=== PATIENT | female | born 2000 | race Caucasian/White ===

== ENCOUNTER 2022-01-09 01:00 | Emergency (ER) | payer SELFPAY ==
[~2022-01-09] VITALS: Ht 167.6 cm; Wt 63.0 kg
[2022-01-09 01:00] VITALS: BP 130/85
--- NOTE | 2022-01-09 01:00 | NUR ---
JAZLYN SCHULZ TAKEN TO BED #3
--- NOTE | 2022-01-09 01:10 | NUR ---
COVERING PRIMARY RN FOR LUNCH RELIEF --- 21 Y/O F JAZLYN FROM [facility] WITH C/O ETOH. PT ADMITS TO CONSUMPTION OF VODKA OF [place]. PT HAD 1 EPISODE OF VOMITTING WITH EMS. PT ABLE TO ANSWER YES/NO QUESTIONS ONLY AT THIS TIME. AROUSABLE TO LIGHT TOUCH AND NAME.
--- NOTE | 2022-01-09 01:30 | NUR ---
PT RESPONDING TO VERBAL COMMANDS. REPONDS WITH NODDING AND "YES OR NO". ORIENTED TO NAME AND PLACE. PT ADMITS TO ALCOHOL USE AND DENIES ANY DRUG USE. FALL AND ASPIRATION PRECAUTIONS INITIATED. SIDE RAILS UP, BED LOCK AND LOW. HEAD OF BED >30 DEGREES SIDE LYING POSITION. ON MONITOR W/ VSS. CALL LIGHT WITHIN REACH.
--- NOTE | 2022-01-09 03:34 | NUR ---
0334 - PT AMBULATED TO THE RESTROOM. STEADY GAIT. SPEAKING IN CLEAR SENTENCES.
[2022-01-09 03:42] VITALS: BP 107/51
== END 2022-01-09 03:41 | disposition home or self-care (01) ==
LOC: MED 01:00
DX: F10.129 Alcohol abuse with intoxication, unspecified (principal); F19.10 Other psychoactive substance abuse, uncomplicated
CPT/HCPCS: 99283